=== PATIENT | male | born 1980 | race Caucasian/White ===

== ENCOUNTER 2022-11-19 10:13 | Emergency (ER) | payer MEDICARE, MEDICAID, SELFPAY ==
[2022-11-19 10:23] VITALS: BP 199/127; PULSE 80; RESP 16; TEMP 36.7; O2SAT 99
--- NOTE | 2022-11-19 10:54 | XR_ITS ---
WS: [id number] Exam: XR chest 1V portable [id number] Date/Time of Exam: 11/19/2022 11:10 AM Reason For Exam: chest discomfort No priors. The lungs are clear and fully inflated. Cardiomediastinal silhouette appears normal. No pleural effus ions. Moderate dextroscoliosis of the T-spine. Bony structures are otherwise unremarkable. Monitoring leads superimpose the chest. XR/XR chest 1V portable [id number] IMPRESSION: 1. No acute cardiopulmonary finding.
--- NOTE | 2022-11-19 11:07 | ECG_ITS ---
[facility] Test Date: 2022-11-19 Pat Name: Timur Grady Department: Room: Gender: Male Peanut Shaker: : 1980 Requested By: Tuan Duran Order Number: [id number] Dong MD: Joseph Hickman M.D. Measurements Intervals [place] Rate: 66 P: 9 CO: 128 QRS: 14 QRSD: 112 T: 28 QT: 372 QTc: 391 Interpretive Statements SINUS RHYTHM MODERATE INTRAVENTRICULAR CONDUCTION DELAY [110+ ms QRS DURATION] INTERPRETATION BASED ON A DEFAULT AGE OF 40 YEARS Compared to ECG 07/31/2016 17:14:18 Intraventricular conduction delay now present Short CO interval no longer present Electronically Signed On 11-19-2022 14:51:45 CUSTODIAL MAINTENANCE WORKER by Joseph Hickman M.D. [id number]
--- NOTE | 2022-11-19 11:07 | W.ED.ARRPALP ---
HPI - Arrhythmia/Palpitations General: Chief Complaint: Arrhythmia/Palpitations Stated Complaint: heartbeat abnormality Time Seen by Provider: 11/19/22 10:32 Source: patient Mode of arrival: wheelchair History of Present Illness: 42-year-old male who presents to the emergency room with complaints of palpitations. Patient states he has had palpitations for several years has never had it evaluated no known history of heart disease no previous angiograms or stress testing. Today he had an episode where he felt like he was get a pass out lasted for a few seconds he was in the waiting line at [facility] when it occurred. Was very transient. Meds completely resolved now. Patient has a history of spina bifida and is no function of his lower extremities. He does have a neurogenic bladder as well. He tells me see symptoms for his kidneys but does not have any chronic kidney disease. He denies any fever sweats chills cough or shortness of breath. MD complaint: palpitations Onset (ago): minute(s) Duration: intermittent Severity: mild Context: occurred during rest Associated symptoms: Deny anxiety, cough, diaphoresis, muscle cramps, nausea, paresthesias, pre-syncope, sense of impending doom, short of breath, syncope or vomiting Review of Systems Const: Denies: fever(s), chills, fatigue, malaise or diaphoresis ENMT: Denies: throat pain, ear or mastoid pain, nasal discharge or nasal congestion Card: Denies: chest pain, palpitations, syncope or pre-syncope Resp: Denies: dyspnea, productive cough or non-productive cough GI: Denies: abdominal pain, nausea or vomiting : Denies: flank pain, dysuria, urinary frequency or urinary urgency Musc: Denies: muscle cramps Skin/Breast: Denies: rash or pruritus Psych: Denies: anxiety Physical Exam Const: GENERAL APPEARANCE: cooperative and comfortable ORIENTATION/CONSCIOUSNESS: Yes awake, Yes oriented to person, Yes oriented to place and Yes oriented to time HENMT: COMMON NORMALS: normocephalic, atraumatic and hearing grossly normal bilaterally HEAD & SCALP: normocephalic and atraumatic Resp: COMMON NORMALS: normal respiratory effort, No retractions, No use of accessory muscles and clear to auscultation bilaterally AUSCULTATION: clear to auscultation bilaterally Cardio: COMMON NORMALS: regular rate, regular rhythm and No murmurs present (Cardio) RATE: regular rate RHYTHM: regular rhythm GI: COMMON NORMALS: Soft to palpation and No hepatosplenomegaly present AUSCULTATION: Yes normoactive bowel sounds PALPATION: Yes Soft to palpation, No Tenderness to palpation present (GI), No Guarding due to palpation present (GI) and Yes No hepatosplenomegaly present Extremity: COMMON NORMALS: normal to inspection, capillary refill normal, no clubbing, cyanosis or edema, no calf tenderness and no pedal edema Neuro: SENSORIUM/ORIENTATION: Yes oriented to person, Yes oriented to place and Yes oriented to time Skin: COMMON NORMALS: no rashes or lesions noted GENERAL SKIN EXAM: no rashes or lesions noted Course Vital Signs: Vital signs: Vital Signs Temperature 98.0 F 11/19/22 10:23 Pulse Rate 88 11/19/22 14:21 Respiratory Rate 16 11/19/22 14:21 Blood Pressure 149/90 11/19/22 14:21 Pulse Oximetry 97 11/19/22 14:21 Oxygen Delivery Me thod 11/19/22 14:21 MDM - Arrhythmia/Palpitations Medical Decision Making Cardiac enzymes unremarkable. EKG shows no acute changes. Reviewed on on the chart. We will [place] discharge patient home patient's symptoms sound like PVCs we will set him up for a 48-hour Holter recheck if has any worsening or changes symptoms follow-up with primary care doc once the Holter is completed Medical Records I reviewed the patient's medical records. Lab Data I reviewed the patient's lab results. 11/19/22 12:00 11/19/22 12:00 Radiology Impressions Chest X-Ray 11/19/22 10:54 IMPRESSION: 1. No acute cardiopulmonary finding. Laboratory Results WBC 7.1 10^3/uL (4.0-10.0) 11/19/22 12:00 RBC 5.30 10^6/uL (4.1-5.3) 11/19/22 12:00 Hgb 16.0 g/dL (11.7-16.6) 11/19/22 12:00 Hct 46.5 % (42.0-52.0) 11/19/22 12:00 MCV 87.7 fl (80-94) 11/19/22 12:00 MCH 30.2 pg (28.0-34.0) 11/19/22 12:00 MCHC 34.4 g/dL (30.0-36.0) 11/19/22 12:00 RDW 11.9 % (12.1-15.1) L 11/19/22 12:00 Plt Count 197 10^3/cmm (130-400) 11/19/22 12:00 MPV 11.0 fL (7.4-10.4) H 11/19/22 12:00 Neut % (Auto) 70.8 % 11/19/22 12:00 Lymph % (Auto) 23.6 % 11/19/22 12:00 [place] % (Auto) 4.5 % 11/19/22 12:00 Eos % (Auto) 0.4 % 11/19/22 12:00 Baso % (Auto) 0.4 % 11/19/22 12:00 Neut # (Auto) 5.04 10^3/uL (1.8-7.7) 11/19/22 12:00 Lymph # (Auto) 1.7 10^3/uL (0.8-4.8) 11/19/22 12:00 [place] # (Auto) 0.3 10^3/uL (0.2-0.9) 11/19/22 12:00 Eos # (Auto) 0.0 10^3/uL (0.0-0.8) 11/19/22 12:00 Baso # (Auto) 0.0 10^3/uL (0.0-0.1) 11/19/22 12:00 Nucleated RBC % (auto) 0 % 11/19/22 12:00 Nucleated RBCs # 0.0 /100WBC 11/19/22 12:00 Sodium 140 mmol/L (136-145) 11/19/22 12:00 Potassium 3.5 mmol/L (3.5-5.1) 11/19/22 12:00 Chloride 103 mmol/L (98-107) 11/19/22 12:00 Carbon Dioxide 26 mmol/L (22-29) 11/19/22 12:00 Anion Gap 14.5 (5-19) 11/19/22 12:00 BUN 10 mg/dL (6-20) 11/19/22 12:00 Creatinine 0.6 mg/dL (0.7-1.2) L 11/19/22 12:00 GFR Calculation 149.2 mL/min (90-130) H 11/19/22 12:00 Glucose 97 mg/dL (65-115) 11/19/22 12:00 Calculated Osmolality 289 mOsm/kg (285-295) 11/19/22 12:00 Calcium 9.7 mg/dL (8.5-10.5) 11/19/22 12:00 Total Bilirubin 0.4 mg/dL (0.15-1.2) 11/19/22 12:00 AST 24 U/L (0-40) 11/19/22 12:00 ALT 32 U/L (0-41) 11/19/22 12:00 Alkaline Phosphatase 91 U/L (40-130) 11/19/22 12:00 Troponin T Baseline 6 ng/L (0-15) 11/19/22 12:00 Troponin T 120 Minute 6.00 ng/L (0-15) 11/19/22 13:55 Delta Troponin T 0 ABS# (0-10) 11/19/22 13:55 Total Protein 7.5 g/dL (6.6-8.7) 11/19/22 12:00 Albumin 4.5 g/dL (3.5-5.2) 11/19/22 12:00 Globulin 3.0 g/dL (1.3-4.6) 11/19/22 12:00 Discharge Plan Discharge Patient Disposition: Home Clinical Impression: Palpitations Condition: Stable Prescriptions: No Action Pepcid 20 mg Tablet 20 mg PO DAILY hydrochlorothiazide 12.5 mg tablet 12.5 mg PO QPM Discharge Orders: Discharge ED (Routine); Ordered 11/19/22 Ordered By: Tuan Davis Referrals: Chaim Moon DO [Primary Care Provider] - Discharge Diet: Usual diet Discharge Activity: Resume usual activity Patient Instructions: Opioid Safety, Pain Management Activity Restrictions/Additional Instructions: You are seen today for palpitations your EKG and lab work was normal. When you first arrived your blood pressure is markedly elevated. Recommend that you follow-up with your doctor regarding your blood pressures. You are not given any medications today for blood pressure or heart arrhythmias. Case management make arrangements for follow-up 48-hour Holter monitor. Coding Level of Care Code ED Plastic Molding Operator for Chg Fwd Exam Detailed
--- NOTE | 2022-11-19 11:22 | PC.NURSE ---
pt on bedside front desk monitor
[2022-11-19] MEDS: amlodipine 10 mg Tablet PO (11:34)
[2022-11-19 12:06] LABS: Basophils % 0.4 %; Eosinophils % 0.4 %; Hematocrit 46.5 % (42.0-52.0); Lymphocytes # 1.7 10^3/uL (0.8-4.8); Lymphocytes % 23.6 %; Mean Corpuscular HGB Conc 34.4 g/dL (30.0-36.0); Mean Corpuscular Hemoglobin 30.2 pg (28.0-34.0); Mean Corpuscular Volume 87.7 fl (80-94); Monocytes # 0.3 10^3/uL (0.2-0.9); Monocytes % 4.5 %; Neutrophils # 5.04 10^3/uL (1.8-7.7); Neutrophils % 70.8 %; Nucleated Red Blood Cells % 0 %; Platelet Count 197 10^3/cmm (130-400); Red Cell Distribution Width 11.9 % (12.1-15.1); White Blood Count 7.1 10^3/uL (4.0-10.0)
[2022-11-19 12:08] VITALS: BP 155/92; PULSE 75; RESP 16; O2SAT 98
[2022-11-19 12:31] LABS: Troponin(5th) Baseline 6 ng/L (0-15)
[2022-11-19 12:33] LABS: Alanine Aminotransferase 32 U/L (0-41); Albumin Level 4.5 g/dL (3.5-5.2); Alkaline Phosphatase 91 U/L (40-130); Anion Gap 14.5 (5-19); Aspartate Amino Transferase 24 U/L (0-40); Blood Urea Nitrogen 10 mg/dL (6-20); Calcium 9.7 mg/dL (8.5-10.5); Carbon Dioxide 26 mmol/L (22-29); Chloride 103 mmol/L (98-107); Glomerular Filtration Rate 149.2 mL/min (90-130); Glucose 97 mg/dL (65-115); Osmolality Calculated 289 mOsm/kg (285-295); Potassium 3.5 mmol/L (3.5-5.1); Sodium 140 mmol/L (136-145); Total Bilirubin 0.4 mg/dL (0.15-1.2); Total Protein 7.5 g/dL (6.6-8.7)
[2022-11-19 12:47] VITALS: BP 162/97; PULSE 85; RESP 17; O2SAT 96
[2022-11-19 13:34] VITALS: BP 152/95; PULSE 88; RESP 16; O2SAT 98
[2022-11-19 14:21] VITALS: BP 149/90; PULSE 88; RESP 16; O2SAT 97
[2022-11-19 14:23] LABS: Troponin 5 2HR Delta 0 ABS# (0-10)
--- NOTE | 2022-11-19 15:20 | DCPLANNER ---
Addendum entered by Taylor Raymond 11/29/22 08:27: Patient had a follow up appointment scheduled with [facility] - patient did attend appointment. Addendum entered by Taylor Raymond 11/26/22 13:30: Patient has a follow up appointment scheduled for Friday, November 27, 2022 at 11:00 at [facility] Clinic will call patient with appointment information. Original Note: health club manager had message to schedule a 48 hour halter monitor for patient. health club manager faxed signed order to [facility], who will call patient with appointment information.
--- NOTE | 2022-11-21 10:08 | DCPLANNER ---
industrial relations manager had message to schedule an outpatient [address] monitor at [facility]. industrial relations manager faxed signed order to centralized scheduling, who will call patient with appointment information.
== END 2022-11-19 14:56 | disposition home or self-care (01) ==
PROVIDERS: Emergency Provider Family Medicine; PCP Internal Medicine
DX: R00.2 Palpitations (principal)
CPT/HCPCS: 71045; 80053; 84484; 85025; 93005; 99285

== ENCOUNTER → 2022-11-27 10:32 | Outpatient (BNVA) | payer MEDICARE, MEDICAID, SELFPAY | PROVIDERS: PCP Internal Medicine; Visit Provider Internal Medicine | DX: R00.2 Palpitations (principal) | CPT/HCPCS: 93225 ==

== ENCOUNTER 2023-02-27 17:36 | Emergency (ER) | payer MEDICARE, MEDICAID, SELFPAY ==
[2023-02-27 18:14] VITALS: BP 211/117; PULSE 89; RESP 20; TEMP 37.7; O2SAT 98; BMI 32.2
[2023-02-27 18:27] LABS: Basophils % 0.2 %; Eosinophils # 0.1 10^3/uL (0.0-0.8); Eosinophils % 0.8 %; Hematocrit 44.7 % (42.0-52.0); Hemoglobin 14.8 g/dL (11.7-16.6); Lymphocytes # 1.4 10^3/uL (0.8-4.8); Mean Corpuscular HGB Conc 33.1 g/dL (30.0-36.0); Mean Corpuscular Hemoglobin 30.2 pg (28.0-34.0); Mean Corpuscular Volume 91.2 fl (80-94); Mean Platelet Volume 10.8 fL (7.4-10.4); Monocytes % 11.4 %; Neutrophils # 6.34 10^3/uL (1.8-7.7); Neutrophils % 71.5 %; Nucleated Red Blood Cells % 0 %; Platelet Count 205 10^3/cmm (130-400); Red Cell Distribution Width 12.6 % (12.1-15.1); White Blood Count 8.9 10^3/uL (4.0-10.0)
[2023-02-27 18:51] LABS: Alanine Aminotransferase 21 U/L (0-41); Albumin Level 4.1 g/dL (3.5-5.2); Alkaline Phosphatase 88 U/L (40-130); Anion Gap 13.5 (5-19); Aspartate Amino Transferase 20 U/L (0-40); Blood Urea Nitrogen 14 mg/dL (6-20); Carbon Dioxide 27 mmol/L (22-29); Chloride 103 mmol/L (98-107); Globulin 3.4 g/dL (1.3-4.6); Glomerular Filtration Rate 124.3 mL/min (90-130); Glucose 106 mg/dL (65-115); Lipase 40 U/L (13-60); Osmolality Calculated 291 mOsm/kg (285-295); Potassium 3.5 mmol/L (3.5-5.1); Sodium 140 mmol/L (136-145); Total Bilirubin 0.8 mg/dL (0.15-1.2); Total Protein 7.5 g/dL (6.6-8.7)
--- NOTE | 2023-02-27 20:44 | USR_ITS ---
PROCEDURE INFORMATION: Exam: US Scrotum Exam date and time: 02/27/2023 9:05 PM Age: 43 years old Clinical indication: Scrotum pain; Patient HX: Left > right scrotal pain and swelling x 2-3 days. No trauma. Febrile at 99.8f; Additional info: Testicular swelling TECHNIQUE: Imaging protocol: Real-time ultrasound of the scrotum and contents with color Doppler and image documentation. COMPARISON: US scrotum [id number] 07/31/2016 7:13 PM FINDINGS: Right testicle: Right testicle measures 2.9 x 2.1 x 2.0 cm. This has normal uniform echogenicity. No focal abnormality is seen in the right testicle. There is normal Doppler flow. Left testicle: Left testicle measures 3.4 x 2.6 x 2.7 cm with normal uniform echogenicity. There is no focal mass in the left testicle. There is normal Doppler flow in the left testicle. Epididymides: The left epididymis is enlarged and hyperemic suggesting epididymitis. There is a small cyst or spermatocele in the right epididymis. Right epididymis is not enlarged. Scrotum/soft tissues: There is a small left hydrocele. US/US scrotum [id number] IMPRESSION: Left epididymitis.
[2023-02-27 20:47] LABS: Add Urine Microscopic? YES; Bilirubin Urine Neg (Negative); Blood Urine Trace (Negative); Glucose Urine UA Norm (Normal); Ketones Urine Negative (Negative); Leukocyte Esterase Urine Negative (Negative); Nitrate Urine Negative (Negative); Protein Urine Neg (Negative); RBC Urine 0-4 /hpf (0-2); Specific Gravity, Urine 1.015 (1.005-1.030); Urine Appearance Clear (CLEAR); Urine Color Yellow (Yellow); Urobilinogen Urine 1 mg/dL (Negative); pH Urine 8 (5-7)
[2023-02-27 20:48] LABS: Add Urine Culture? No
--- NOTE | 2023-02-27 20:52 | ED_ITS ---
HPI - Male Genitourinary General: Chief complaint: Urogenital-Male Stated complaint: groin swelling/nauseas Time Seen by Provider: 02/27/23 20:45 History of Present Illness: 43-year-old male patient comes in today for complaints of left testicular pain and swelling. Patient has a history of recurrent epididymitis. Patient was evaluated by his urologist yesterday and was started on some doxycycline in the evening. Patient has taken 2 doses. Patient continued has some increased pain and discomfort. Patient was concerned that the swelling may be getting worse. Patient has a history of spina bifida which requires him to be wheelchair-bound. Review of Systems General: Reports: 10 or more systems reviewed and unremarkable except in HPI and below Const: Reports: fever(s) Card: Denies: chest pain Resp: Denies: dyspnea GI: Denies: abdominal pain : Reports: testicular pain and testicular mass Musc: Denies: neck pain or back pain Skin/Breast: Denies: rash Physical Exam Const: COMMON NORMALS: no acute distress HENMT: COMMON NORMALS: normocephalic HEAD & SCALP: normocephalic Neck/C-Spine: COMMON NORMALS: full ROM Resp: COMMON NORMALS: normal respiratory effort and clear to auscultation bi laterally AUSCULTATION: clear to auscultation bilaterally GI: COMMON NORMALS: Soft to palpation and non-tender PALPATION: Yes Soft to palpation : COMMON NORMALS: Yes no CVA tenderness BLADDER/KIDNEY EXAM: Yes no CVA tenderness TESTES: Yes testicular lie normal, Yes Enlarged testicle(s) present (Left testicle) and Yes testicular tenderness (Left testicle) Back/Pelvis: COMMON NORMALS: no CVA tenderness Skin: COMMON NORMALS: turgor normal GENERAL SKIN EXAM: turgor normal Course Vital Signs: Vital signs: Vital Signs Temperature 99.9 F H 02/27/23 18:14 Pulse Rate 89 02/27/23 18:14 Respiratory Rate 20 H 02/27/23 18:14 Blood Pressure 211/117 02/27/23 18:14 Pulse Oximetry 98 02/27/23 18:14 Oxygen Delivery Me thod Room Air 02/27/23 18:14 MDM - Male Medical Decision Making 43-year-old male patient comes in today for complaints of swelling and tenderness to the left testicle. On exam we note epididymal swelling and tenderness suspicious for epididymitis. Remainder of exam is unremarkable. No significant redness or induration is noted of the scrotum. Differential diagno sis includes but not limited to epididymitis, orchitis, cellulitis/abscess. Ultrasound of testicles noted good blood flow to bilateral testicles and hyperemic epididymis on the left side suggesting of epididymitis. Patient was given a gram Rocephin for further treatment of infection. Patient was recommended to continue with doxycycline 1 tablet twice a day until completion of antibiotics. Patient was written for some hydrocodone for severe pain. Patient was recommended to use acetaminophen and ibuprofen otherwise for pain. Patient reported understanding agreed to plan. Lab Data 02/27/23 18:19 02/27/23 18:19 Radiology Impressions Scrotum Ultrasound 02/27/23 20:44 IMPRESSION: Left epididymitis. Laboratory Results WBC 8.9 10^3/uL (4.0-10.0) 02/27/23 18:19 RBC 4.90 10^6/uL (4.1-5.3) 02/27/23 18:19 Hgb 14.8 g/dL (11.7-16.6) 02/27/23 18:19 Hct 44.7 % (42.0-52.0) 02/27/23 18:19 MCV 91.2 fl (80-94) 02/27/23 18:19 MCH 30.2 pg (28.0-34.0) 02/27/23 18:19 MCHC 33.1 g/dL (30.0-36.0) 02/27/23 18:19 RDW 12.6 % (12.1-15.1) 02/27/23 18:19 Plt Count 205 10^3/cmm (130-400) 02/27/23 18:19 MPV 10.8 fL (7.4-10.4) H 02/27/23 18:19 Neut % (Auto) 71.5 % 02/27/23 18:19 Lymph % (Auto) 16.0 % 02/27/23 18:19 [place] % (Auto) 11.4 % 02/27/23 18:19 Eos % (Auto) 0.8 % 02/27/23 18:19 Baso % (Auto) 0.2 % 02/27/23 18:19 Neut # (Auto) 6.34 10^3/uL (1.8-7.7) 02/27/23 18:19 Lymph # (Auto) 1.4 10^3/uL (0.8-4.8) 02/27/23 18:19 [place] # (Auto) 1.0 10^3/uL (0.2-0.9) H 02/27/23 18:19 Eos # (Auto) 0.1 10^3/uL (0.0-0.8) 02/27/23 18:19 Baso # (Auto) 0.0 10^3/uL (0.0-0.1) 02/27/23 18:19 Nucleated RBC % (auto) 0 % 02/27/23 18:19 Nucleated RBCs # 0.0 /100WBC 02/27/23 18:19 Sodium 140 mmol/L (136-145) 02/27/23 18:19 Potassium 3.5 mmol/L (3.5-5.1) 02/27/23 18:19 Chloride 103 mmol/L (98-107) 02/27/23 18:19 Carbon Dioxide 27 mmol/L (22-29) 02/27/23 18:19 Anion Gap 13.5 (5-19) 02/27/23 18:19 BUN 14 mg/dL (6-20) 02/27/23 18:19 Creatinine 0.7 mg/dL (0.7-1.2) 02/27/23 18:19 GFR Calculation 124.3 mL/min (90-130) 02/27/23 18:19 Glucose 106 mg/dL (65-115) 02/27/23 18:19 Calculated Osmolality 291 mOsm/kg (285-295) 02/27/23 18:19 Calcium 9.0 mg/dL (8.5-10.5) 02/27/23 18:19 Total Bilirubin 0.8 mg/dL (0.15-1.2) 02/27/23 18:19 AST 20 U/L (0-40) 02/27/23 18:19 ALT 21 U/L (0-41) 02/27/23 18:19 Alkaline Phosphatase 88 U/L (40-130) 02/27/23 18:19 Total Protein 7.5 g/dL (6.6-8.7) 02/27/23 18:19 Albumin 4.1 g/dL (3.5-5.2) 02/27/23 18:19 Globulin 3.4 g/dL (1.3-4.6) 02/27/23 18:19 Lipase 40 U/L (13-60) 02/27/23 18:19 Urine Color Yellow (Yellow) 02/27/23 20:30 Urine Appearance Clear (CLEAR) 02/27/23 20:30 Urine pH 8 (5-7) H 02/27/23 20:30 Ur Specific [place] 1.015 (1.005-1.030) 02/27/23 20:30 Urine Protein Neg (Negative) 02/27/23 20:30 Urine Glucose (UA) Norm (Normal) 02/27/23 20:30 Urine Ketones Negative (Negative) 02/27/23 20:30 Urine Blood Trace (Negative) H 02/27/23 20:30 Urine Nitrate Negative (Negative) 02/27/23 20:30 Urine Bilirubin Neg (Negative) 02/27/23 20:30 Urine Urobilinogen 1 mg/dL (Negative) H 02/27/23 20:30 Ur Leukocyte Esterase Negative (Negative) 02/27/23 20:30 Urine RBC 0-4 /hpf (0-2) H 02/27/23 20:30 Urine WBC None /hpf (0-5) 02/27/23 20:30 Ur Squamous Epith Cells None /hpf (0-5) 02/27/23 20:30 Amorphous Sediment Not Reportable 02/27/23 20:30 Urine Bacteria None /hpf (NONE) 02/27/23 20:30 Discharge Plan Discharge Patient Disposition: Home Clinical Impression: Epididymitis Condition: Stable Prescriptions: New hydrocodone-acetaminophen 5-325 mg tablet 1 tab PO Q8H PRN (Reason: pain (scale score 7-10)) Qty: 6 0RF No Action Pepcid 20 mg Tablet 20 mg PO DAILY hydrochlorothiazide 12.5 mg tablet 12.5 mg PO QPM Discharge Orders: Discharge ED (Routine); Ordered 02/27/23 Ordered By: Vadim Ta Referrals: Chaim Moon DO [Primary Care Provider] - Discharge Diet: Usual diet Discharge Activity: Increase activity as tolerated Patient Instructions: Epididymitis (ED) Activity Restrictions/Additional Instructions: Take antibiotic as directed. Continue with doxycycline until completed. Use acetaminophen and ibuprofen to control pain. Use hydrocodone for severe pain. Use ice or heat for further comfort. Activity as tolerated. Follow-up with primary care for further instructions. Return to ED for new concerns. Coding Level of Care Code ED Floor Steward/Stewardess for Trinh Cook
[2023-02-27] MEDS: HYDROcodone-acetaminophen 5-325 mg Tablet 1 TAB PO (22:10)
[2023-02-27] MEDS: cefTRIAXone 1,000 MG in water for injection-sterile 2.1 ML 1 MG IM (22:10)
== END 2023-02-27 22:17 | disposition home or self-care (01) ==
PROVIDERS: Emergency Medicine; Emergency Provider Nurse Practitioner Family; PCP Internal Medicine
DX: N45.1 Epididymitis (principal)
CPT/HCPCS: 36415; 76870; 80053; 81001; 83690; 85025; 96372; 99284; J0696